=== PATIENT | male | born 1975 | race African-American/Black ===

== ENCOUNTER 2017-08-25 06:11 | Emergency (ER) | payer MEDICAID ==
[2017-08-25 06:46] LABS: BASOPHILS 0.2 % (0-2); EOSINOPHILS 3.8 % (0-7); HEMATOCRIT 47.7 % (42.0-54.0); HEMOGLOBIN 16.6 g/dL (13.5-17.5); IMMATURE GRANULOCYTES 0.3 % (0-5); LYMPHOCYTES 11.6 % (15-50); MCH 29.2 pg (26.0-34.0); MCHC 34.8 g/dL (31.0-37.0); MEAN PLATELET VOLUME 9.2 fL (7.4-10.4); MONOCYTES 10.7 % (2-11); NEUTROPHILS 73.4 % (40-80); PLATELET COUNT 235 10x3/uL (130-400); RBC 5.68 10x6/uL (4.20-6.10); RDW 14.7 % (11.5-14.5)
[2017-08-25 06:50] LABS: ALBUMIN 3.7 g/dL (3.4-5.0); ANION GAP 11.6 mmol/L (8-16); BILIRUBIN - TOTAL 1.27 mg/dL (0.2-1.3); CALCIUM 8.9 mg/dL (8.5-10.1); CARBON DIOXIDE 28.3 mmol/L (21.0-32.0); CREATININE - SERUM 1.4 mg/dL (0.6-1.3); POTASSIUM - SERUM 3.9 mmol/L (3.5-5.1); PROTEIN - SERUM 7.6 g/dL (6.4-8.2)
[2017-08-25 10:11] LABS: APTT 28.1 SECONDS (22.8-39.4); INR 1.06 (0.85-1.17); PROTIME 13.4 SECONDS (11.6-15.0)
[2017-08-25 10:12] LABS: D-DIMER-QUANTITATIVE 0.42 ug/mLFEU (0.20-0.54)
[2017-08-25 10:27] LABS: CKMB 1.9 U/L (0.0-3.6); CREATINE KINASE 378 UL (21-232); PRO BNP 55 pg/mL (0-125); TROPONIN-I < 0.017 ng/mL (0.000-0.060)
== END 2017-08-25 09:30 | disposition home or self-care (01) ==
LOC: D.ER 06:11
PROVIDERS: Family Medicine
DX: J45.901 Unspecified asthma with (acute) exacerbation (principal); J44.9 Chronic obstructive pulmonary disease, unspecified

== ENCOUNTER 2019-07-01 02:22 | Emergency (ER) | payer OTHER ==
[~2019-07-01] VITALS: Ht 198.1 cm; Wt 95.5 kg
[2019-07-01 02:28] VITALS: Ht 198.1 cm; Wt 95.5 kg
[2019-07-01] MEDS ORDERED: ALBUTEROL SULF8.5 GM INH (02:30)
[2019-07-01] MEDS ORDERED: ALBUTEROL2.5 MG/3 M INH (02:30)
[2019-07-01 02:41] LABS: BASOPHILS 0.8 % (0-2); EOSINOPHILS 9.3 % (0-7); HEMATOCRIT 48.5 % (42.0-54.0); HEMOGLOBIN 16.2 g/dL (13.5-17.5); IMMATURE GRANULOCYTES 0.1 % (0-5); LYMPHOCYTES 31.8 % (15-50); MCH 28.4 pg (26.0-34.0); MCHC 33.4 g/dL (31.0-37.0); MCV 85.1 fL (80.0-100.0); MEAN PLATELET VOLUME 8.6 fL (7.4-10.4); MONOCYTES 11.5 % (2-11); NEUTROPHILS 46.5 % (40-80); PLATELET COUNT 242 10x3/uL (130-400); RDW 15.4 % (11.5-14.5); WBC 7.9 10x3/uL (4.8-10.8)
[2019-07-01 02:50] LABS: CALC OSMOLALITY 282 mosm/kg (275-300); CALCIUM 8.7 mg/dL (8.5-10.1); CARBON DIOXIDE 28.6 mmol/L (21.0-32.0); CHLORIDE - SERUM 106 mmol/L (98-107); CREATININE - SERUM 1.2 mg/dL (0.6-1.3); GLUCOSE 94 mg/dL (74-106); POTASSIUM - SERUM 3.6 mmol/L (3.5-5.1); SODIUM 142 mmol/L (136-145); UREA NITROGEN 12 mg/dL (7-18); eGFR NON AFRICAN AMERICAN 71 mL/min (90-120)
[2019-07-01 03:03] LABS: ALKALINE PHOSPHATASE 80 U/L (30-120); ALT (SGPT) 31 U/L (10-68); BILIRUBIN - TOTAL 0.54 mg/dL (0.2-1.3); PRO BNP 30 pg/mL (0-125); PROTEIN - SERUM 7.8 g/dL (6.4-8.2)
[2019-07-01 03:05] LABS: TROPONIN-I < 0.017 ng/mL (0.000-0.060)
[2019-07-01] MEDS ORDERED: IPRAT-ALBUT 0.5-3 ML UPD (03:16)
[2019-07-01] MEDS ORDERED: FLOVENT HFA 11012 GM INH (03:16)
[2019-07-01] MEDS ORDERED: STERAPRED DS 1010 MG PO (03:16)
[2019-07-01 04:26] VITALS: BP 148/91
== END 2019-07-01 04:27 | disposition home or self-care (01) ==
LOC: D.ER 02:22
PROVIDERS: Family Medicine
DX: J45.901 Unspecified asthma with (acute) exacerbation (principal)

== ENCOUNTER 2020-07-04 04:48 | Emergency (ER) | payer OTHER ==
[~2020-07-04] VITALS: Ht 198.1 cm; Wt 95.5 kg
[~2020-07-04 04:48] MED LIST: ALBUTEROL SULF8.5 GM INH; ALBUTEROL2.5 MG/3 M INH; FLOVENT HFA 11012 GM INH; IPRAT-ALBUT 0.5-3 ML UPD; STERAPRED DS 1010 MG PO
[2020-07-04 04:52] VITALS: BP 121/80; Ht 198.1 cm; Wt 95.5 kg
[2020-07-04] MEDS ORDERED: HYDROCODON-ACE1 EAC7 PO (05:04)
== END 2020-07-04 05:32 | disposition home or self-care (01) ==
LOC: D.ER 04:48
DX: S52.501A Unspecified fracture of the lower end of right radius, initial encounter for closed fracture (principal); W19.XXXA Unspecified fall, initial encounter; Y93.9 Activity, unspecified; Y92.9 Unspecified place or not applicable

== ENCOUNTER 2020-07-09 08:33 | Day surgery (SDC) | payer OTHER ==
[~2020-07-09] VITALS: Ht 198.1 cm; Wt 93.0 kg
[~2020-07-09 08:33] MED LIST changes: +HYDROCODON-ACE1 EA10 PO; +HYDROCODON-ACE1 EAC7 PO
[2020-07-09 09:02] LABS: ANION GAP 7.6 mmol/L (8-16); CALCIUM 8.6 mg/dL (8.5-10.1); CARBON DIOXIDE 31.6 mmol/L (21.0-32.0); CREATININE - SERUM 1.2 mg/dL (0.6-1.3); POTASSIUM - SERUM 4.2 mmol/L (3.5-5.1)
[2020-07-09 10:21] VITALS: BP 114/83; Ht 198.1 cm; Wt 93.0 kg
[2020-07-09 10:31] LABS: BASOPHILS 0.3 % (0-2); EOSINOPHILS 3.1 % (0-7); HEMATOCRIT 45.6 % (42.0-54.0); HEMOGLOBIN 15.3 g/dL (13.5-17.5); IMMATURE GRANULOCYTES 0.2 % (0-5); LYMPHOCYTE ABS# 1.81 10x3/uL (1.32-3.57); MCH 29.7 pg (26.0-34.0); MCHC 33.6 g/dL (31.0-37.0); MCV 88.5 fL (80.0-100.0); MEAN PLATELET VOLUME 9.9 fL (7.4-10.4); MONOCYTES 8.8 % (2-11); NEUTROPHIL ABS# 5.72 10x3/uL (1.78-5.38); NEUTROPHILS 66.6 % (40-80); PLATELET COUNT 277 10x3/uL (130-400); RBC 5.15 10x6/uL (4.20-6.10); RDW 14.4 % (11.5-14.5); WBC 8.6 10x3/uL (4.8-10.8)
[2020-07-09] MEDS ORDERED: PERCOCET 10-321 EAC1 PO (13:46)
[2020-07-09] MEDS ORDERED: VISTARIL50 MG PO (13:46)
--- NOTE | 2020-07-09 15:46 | NUR ---
1545 IV REMOVED AND PRESSURE HELD. PT GETTING DRESSED
--- NOTE | 2020-07-09 16:00 | NUR ---
INSTRUCTIONS GIVEN AND PT ASSISTED WITH GETTING DRESSED
--- NOTE | 2020-07-10 06:20 | OP ---
PATIENT NAME: RACH JULIO MEDICAL RECORD: [id number] :77 LOCATION:[facility] ADMISSION DATE: SURGEON: TEDDY HEREDIA DO DATE OF OPERATION: 07/09/2020 PROCEDURE PERFORMED: Right distal radius open reduction and internal fixation. PREOPERATIVE DIAGNOSIS: Right distal radius fracture, displaced and dorsal comminution. POSTOPERATIVE DIAGNOSIS: Right distal radius fracture, displaced and dorsal comminution. INDICATIONS: Mr. Julio is a 45-year-old male who fell on Tuesday and sustained a distal radius fracture. He came to the ER. X-rays were taken and seen to have a dorsal comminution and followed up in clinic. We told him we probably need to fix it due to the high likelihood it would collapse. He was aware of the risks including infection, bleeding, damage to nerves and vessels including the median nerve, malunion, nonunion, continued pain, loss of motion of the wrist and need for further surgery, removal of hardware, failure of implant and he signed the consent. SURGEON: Teddy Heredia DO. DESCRIPTION OF PROCEDURE: The patient was taken to the operative suite, laid in supine position. He was given a block by Anesthesia in preoperative area and lightly sedated. He was given 2 grams Ancef preoperatively. The right upper extremity was then prepped and draped in sterile fashion. Timeout was performed. Everyone was in agreement with correct side, site, patient and procedure. We exsanguinated the right upper extremity with an Esmarch, tourniquet was inflated to 250 mmHg, was up for 25 minutes. I then made an incision over the flexor carpi radialis tendon and made careful dissection down to the pronator quadratus. At that point, peeled it off radially, exposed the distal radius fracture and reduced it and put a pin in through the styloid holding it into place. I then put in a wide Acumed plate. Once this was in adequate position, I put a screw into the shaft, oblong hole and then 4 distal screws and 2 screws in the styloid and then 2 more screws in the shaft, reduced very nicely and was held into place well. I then put the tourniquet down, irrigated, coagulated bleeding with a pickup and Bovie and then closed the skin with 3-0 Vicryl in inverted interrupted fashion and then put Prineo glue on the skin and then dressed with 4 x 4s, cast padding, and a volar splint placed and secured with an Kaiser wrap. He was then awakened and taken to recovery in stable condition. BLOOD LOSS: Minimal. COMPLICATIONS: None. TRANSINT:[id number] Voice Confirmation ID: [id number] DOCUMENT ID: [id number] OPERATIVE REPORT [id number] RACH JULIO MICHAEL D, at 0620 CC: [id number] DICTATION DATE: 07/09/20 1451 LOGISTICS SPECIALIST: 07/09/20 2330 [facility] 07/09/20 [id number] [place] [address]
== END 2020-07-09 16:00 | disposition home or self-care (01) ==
LOC: D.OPS 08:33
PROVIDERS: Anesthesiology; ATTEND Orthopaedic Surgery
DX: M25.531 Pain in right wrist (principal); S52.501A Unspecified fracture of the lower end of right radius, initial encounter for closed fracture; X58.XXXA Exposure to other specified factors, initial encounter